=== PATIENT | male | born 1960 | race American Indian/Alaskan Native ===

== ENCOUNTER 2018-05-14 10:42 | Emergency (ER) | payer MEDICAID ==
[2018-05-14 10:43] VITALS: BMI 22.2
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
[2018-05-14 12:30] VITALS: BP 148/98; PULSE 86; RESP 18; TEMP 98; O2SAT 98
== END 2018-05-14 12:39 | disposition home or self-care (01) ==
LOC: ED 10:42
DX: M43.6 Torticollis (principal); I10 Essential (primary) hypertension; F17.210 Nicotine dependence, cigarettes, uncomplicated
CPT/HCPCS: 96372; 99282; J1885

== ENCOUNTER 2018-06-22 11:21 | Emergency (ER) | payer MEDICAID ==
[2018-06-22 11:22] VITALS: BMI 22.2
[2018-06-22 11:42] VITALS: BP 127/92; PULSE 93; RESP 18; TEMP 98.6; O2SAT 98
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
== END 2018-06-22 13:13 | disposition home or self-care (01) ==
LOC: ED 11:21
DX: M54.5 Low back pain (principal); G89.29 Other chronic pain; I10 Essential (primary) hypertension; F17.210 Nicotine dependence, cigarettes, uncomplicated
CPT/HCPCS: 96372; 99282; J1885